=== PATIENT | female | born 1990 | race Caucasian/White ===

== ENCOUNTER 2020-01-11 10:59 | Emergency (ER) | payer OTHER ==
[~2020-01-11] VITALS: Ht 175.3 cm; Wt 54.4 kg
[2020-01-11] MEDS ORDERED: SUPER THERAVIT1 EACH PO (11:12)
[2020-01-11] MEDS ORDERED: IBUPROFEN 800800 MG PO (12:15)
[2020-01-11 12:30] VITALS: BP 121/79
== END 2020-01-11 12:31 | disposition home or self-care (01) ==
LOC: M.ERS 10:59
DX: S90.31XA Contusion of right foot, initial encounter (principal); X50.9XXA Other and unspecified overexertion or strenuous movements or postures, initial encounter; Y93.68 Activity, volleyball (beach) (court); Y92.89 Other specified places as the place of occurrence of the external cause; Y99.8 Other external cause status